=== PATIENT | male | born 1990 | race Caucasian/White ===

== ENCOUNTER → 2018-07-23 | Outpatient (REF) | payer OTHER | LOC: M SFHCLERA 12:56 | DX: J02.9 Acute pharyngitis, unspecified (principal) ==

== ENCOUNTER 2020-03-14 23:48 | Emergency (ER) | payer OTHER ==
[~2020-03-14] VITALS: Ht 170.2 cm; Wt 68.2 kg
[2020-03-14] MEDS ORDERED: diphenhydrAMINE 50MG/ML VIAL (J1200) IM STA (23:49)
[2020-03-14] MEDS ORDERED: HALOPERIDOL 5MG/ML VIAL (J1630 PER 1) IM STA (23:49)
[2020-03-15 00:14] LABS: HEMATOCRIT 44.6 % (42.0-52.0); HEMOGLOBIN 15.1 g/dl (13.5-17.5); MEAN CORPUSCULAR HEMOGLOBIN 31.1 pg (27.0-33.0); MEAN CORPUSCULAR HGB CONC 33.9 g/dl (32.0-36.5); MEAN CORPUSCULAR VOLUME 91.8 fl (80.0-96.0); PLATELET COUNT, AUTOMATED 280 10^3/uL (150-450); RED BLOOD COUNT 4.86 10^6/uL (4.30-6.10); WHITE BLOOD COUNT 12.1 10^3/uL (4.0-10.0)
[2020-03-15 00:51] LABS: AMPHETAMINES LEVEL URINE NEGATIVE (NEGATIVE); BARBITURATES URINE NEGATIVE (NEGATIVE); BENZODIAZEPINES URINE NEGATIVE (NEGATIVE); CANNABINOIDS URINE POSITIVE (NEGATIVE); COCAINE METABOLITE URINE POSITIVE (NEGATIVE); METHADONE URINE NEGATIVE (NEGATIVE); OPIATES URINE NEGATIVE (NEGATIVE); PHENCYCLIDINE URINE NEGATIVE (NEGATIVE)
[2020-03-15 00:57] LABS: ACETAMINOPHEN LEVEL < 2.0 UG/ML (10.0-30.0); ALBUMIN 4.5 GM/DL (3.2-5.2); ALT/SGPT 32 U/L (12-78); BILIRUBIN,DIRECT 0.1 MG/DL (0.0-0.2); BILIRUBIN,TOTAL 0.4 MG/DL (0.2-1.0); BLOOD UREA NITROGEN 13 MG/DL (7-18); CARBON DIOXIDE LEVEL 25 MEQ/L (21-32); CHLORIDE LEVEL 106 MEQ/L (98-107); CREATININE FOR GFR 1.16 MG/DL (0.70-1.30); ETHYL ALCOHOL (ETHANOL) 0.211 % (0.000-0.010); GLOMERULAR FILTRATION RATE > 60.0 (>60); GLUCOSE, FASTING 115 MG/DL (70-100); POTASSIUM SERUM 3.4 MEQ/L (3.5-5.1); SALICYLATE LEVEL 2.8 MG/DL (5.0-30.0); SODIUM LEVEL 141 MEQ/L (136-145)
[2020-03-15 04:55] VITALS: BP 124/73
== END 2020-03-15 04:57 | disposition home or self-care (01) ==
LOC: M ED 23:48
DX: F19.10 Other psychoactive substance abuse, uncomplicated (principal); F10.10 Alcohol abuse, uncomplicated; F12.10 Cannabis abuse, uncomplicated; F17.218 Nicotine dependence, cigarettes, with other nicotine-induced disorders; Z88.2 Allergy status to sulfonamides
CPT/HCPCS: 80048; 80076; 80307; 84443; 85027; 99284; G0480

== ENCOUNTER 2020-07-26 15:21 | Inpatient (IN) | payer OTHER ==
[~2020-07-26] VITALS: Ht 172.7 cm; Wt 70.4 kg
[2020-07-26] MEDS ORDERED: ADDE15CA3 PO (15:32)
[2020-07-26] MEDS ORDERED: ALLE24TA7 PO (15:32)
[2020-07-26] MEDS ORDERED: NS 1,000 ML IV ONE ×3 (15:45→18:00)
--- NOTE | 2020-07-26 16:21 | REPVR ---
PROCEDURE INFORMATION: Exam: XR Chest, 1 View Exam date and time: 07/26/2020 4:07 PM Age: 29 years old Clinical indication: Chest pain; Type not specified TECHNIQUE: Imaging protocol: XR of the chest Views: 1 view. COMPARISON: No relevant prior studies available. FINDINGS: Lungs: No focal areas of consolidation. Pleural space: No pleural effusion or pneumothorax. Heart/Mediastinum: Cardiac and mediastinal silhouettes are unremarkable. Bones/joints: No acute osseus lesion or fracture. IMPRESSION: No acute cardiopulmonary findings. Electronically signed by: Joseph Alonso On 07/26/2020 16:21:33 PM
[2020-07-26 16:22] LABS: BASO % 0.3 % (0.0-1.0); EOS # 0.1 10^3/uL (0.0-0.5); EOS % 0.8 % (0.0-3.0); HEMOGLOBIN 14.4 g/dl (13.5-17.5); LYMPH # 1.1 10^3/uL (1.5-5.0); LYMPH % 8.9 % (24.0-44.0); MEAN CORPUSCULAR HGB CONC 33.5 g/dl (32.0-36.5); MEAN CORPUSCULAR VOLUME 92.5 fl (80.0-96.0); MONO % 8.3 % (0.0-5.0); NEUTROPHILS # 9.6 10^3/uL (1.5-8.5); NEUTROPHILS % 81.1 % (36.0-66.0); PLATELET COUNT, AUTOMATED 270 10^3/uL (150-450); RED BLOOD COUNT 4.65 10^6/uL (4.30-6.10); WHITE BLOOD COUNT 11.9 10^3/uL (4.0-10.0)
[2020-07-26 17:49] LABS: ALBUMIN 4.1 GM/DL (3.2-5.2); ALT/SGPT 218 U/L (12-78); BILIRUBIN,DIRECT 0.2 MG/DL (0.0-0.2); BILIRUBIN,TOTAL 0.7 MG/DL (0.2-1.0); BLOOD UREA NITROGEN 8 MG/DL (7-18); CALCIUM LEVEL 9.1 MG/DL (8.5-10.1); CARBON DIOXIDE LEVEL 28 MEQ/L (21-32); CHLORIDE LEVEL 104 MEQ/L (98-107); CK-MB VALUE MASS 14.2 NG/ML (<3.6); CREATININE FOR GFR 0.99 MG/DL (0.70-1.30); GLOMERULAR FILTRATION RATE > 60.0 (>60); GLUCOSE, FASTING 92 MG/DL (70-100); LIPASE 269 U/L (73-393); POTASSIUM SERUM 3.6 MEQ/L (3.5-5.1); SODIUM LEVEL 139 MEQ/L (136-145); THYROID STIMULATING HORMONE 0.616 uIU/ML (0.358-3.740); TOTAL PROTEIN 7.1 GM/DL (6.4-8.2)
[2020-07-26 17:50] LABS: CPK CREATINE PHOSPHOKINASE 34500 U/L (39-308); MB/CK RELATIVE INDEX 0.04 (< OR =4)
[2020-07-26] MEDS ORDERED: NS 1,000 ML IV SCH (18:00)
[2020-07-26 18:14] LABS: ETHYL ALCOHOL (ETHANOL) < 0.003 % (0.000-0.010); SALICYLATE LEVEL 2.4 MG/DL (5.0-30.0)
[2020-07-26 18:48] LABS: AMPHETAMINES LEVEL URINE NEGATIVE (NEGATIVE); BARBITURATES URINE NEGATIVE (NEGATIVE); BENZODIAZEPINES URINE NEGATIVE (NEGATIVE); CANNABINOIDS URINE POSITIVE (NEGATIVE); COCAINE METABOLITE URINE POSITIVE (NEGATIVE); METHADONE URINE NEGATIVE (NEGATIVE); OPIATES URINE NEGATIVE (NEGATIVE); PHENCYCLIDINE URINE NEGATIVE (NEGATIVE)
[2020-07-26 18:51] LABS: HEPATITIS B SURFACE ANTIGEN NEGATIVE (NEGATIVE)
--- NOTE | 2020-07-26 19:10 | REPVR ---
PROCEDURE INFORMATION: Exam: US Abdomen, Limited; Right Upper Quadrant Exam date and time: 07/26/2020 6:40 PM Age: 29 years old Clinical indication: Abnormal findings; Abnormal lab test; Elevated liver enzymes TECHNIQUE: Imaging protocol: US abdomen. Real time ultrasound with image documentation. Limited exam focused on the right upper quadrant. COMPARISON: No relevant prior studies available. FINDINGS: Liver: Normal. No masses. Gallbladder: 3 mm echogenic polyp on the mucosal surface of the gallbladder may represent a cholesterol polyp. Gallbladder otherwise unremarkable. Common bile duct: The common bile duct measures 2.4 mm. No mass or choledocholithiasis. Pancreas: Visualized pancreas is unremarkable. Right kidney: Right kidney measures 9.4 x 4.7 x 4.7 cm. IMPRESSION: 1. 3 mm echogenic polyp on the mucosal surface of the gallbladder may represent a cholesterol polyp. Gallbladder otherwise unremarkable. 2. Otherwise unremarkable. Electronically signed by: Brandon Gage On 07/26/2020 19:09:26 PM
[2020-07-26 19:17] LABS: HEPATITIS C VIRUS ABY INDEX 0.1 INDEX (<0.8)
[2020-07-26 19:18] LABS: HEPATITIS B CORE ANTIBODY IGM NEGATIVE (NEGATIVE)
[2020-07-26 19:21] LABS: HEPATITIS A ANTIBODY IGM NEGATIVE (NEGATIVE)
--- NOTE | 2020-07-26 23:21 | HPEPDOC ---
[facility] Medical History & Physical Date of Admission Jul 26, 2020 Date of Service: Jul 26, 2020 Attending Physician: RAS SANTAMARIA DO History and Physical CHIEF COMPLAINT: chest tightness/palptiations HISTORY OF PRESENT ILLNESS: Rene Hatch is a 29 YO M with history of multi- substance and alcohol abuse who presented to the ER from urgent care with chest tightness and palpitations after taking a pre-workout supplement. Patient reports that [place] and did [place] with his friends, then today took a pre-workout supplement and did a rigorous weight lifting regimen. Shortly after taking the pre-workout supplement he started to feel severe chest tightness and palpitations. He also reports that he had some shortness of breath, nausea and lightheadedness at that time. Once he arrived to the ED, his chest discomfort had subsided. Upon further workup he was found to have transaminitis and elevated CK at 34,500 concerning for rhabdomyolysis. His toxicology screen is positive for cocaine and cannabinoids. Troponins were trended and were found to be negative. PAST MEDICAL HISTORY: Alcohol abuse Multi-substance abuse including cannabinoids and cocaine PAST SURGICAL HISTORY: Right wrist surgery SOCIAL HISTORY: Smokes 1 pack cigarettes per day Uses cocaine regularly Smokes marijuana regularly Denies any IV drug use or other illicit drug use FAMILY HISTORY: Noncontributory ALLERGIES: Please see below. REVIEW OF SYSTEMS: Constitutional: No Weight Change, No Fever, No Chills, No Night Sweats, No Fatigue, No Malaise ENT/Mouth: No Hearing Changes, No Ear Pain, No Nasal Congestion, No Sinus Pain, No Hoarseness, No sore throat, No Rhinorrhea, No Swallowing Difficulty Eyes: No Eye Pain, No Swelling, No Redness, No Foreign Body, No Discharge, No Vision Changes Cardiovascular: Reports recent history of chest tightness, palpitations, No Dyspnea on Exertion, No Orthopnea, No Claudication, No Edema, No Palpitations Respiratory: No Cough, No Wheezing, No Smoke Exposure, No Dyspnea Gastrointestinal: No Nausea, No Vomiting, No Diarrhea, No Constipation, No Pain, No Heartburn, No Anorexia, No Dysphagia, No Hematochezia, No Melena, No Flatulence, No Jaundice Genitourinary: No hematuria or blood tinged urine Musculoskeletal: No Arthralgias, No Myalgias, No Joint Swelling, No Joint Stiffness, No Back Pain, No Neck Pain, No Injury History Skin: No Skin Lesions, No Pruritis, No Hair Changes, No Breast/Skin Changes, No Nipple Discharge Neuro: No Weakness, No Numbness, No Paresthesias, No Loss of Consciousness, No Syncope, No Dizziness, No Headache, No Coordination Changes, No Recent Falls Psych: No Anxiety/Panic, No Depression, No Insomnia, No Personality Changes, No Delusions Heme/Lymph: No Bruising, No Bleeding, No Transfusions History, No Ly mphadenopathy Endocrine: No Polyuria, No Polydipsia, No Temperature Intolerance HOME MEDICATIONS: Please see below. VITAL SIGNS: see below GENERAL: alert and oriented, in no apparent distress, pleasant and conversant in full sentences. HEENT: PERRL, EOMI, Oral mucous membranes are moist without lesions. NECK: The patient has no noted JVD. No adenopathy is appreciated. No thyromegaly CHEST/LUNGS: Lungs are clear bilaterally without rhonchi, rales, or wheezes. There is no subcutaneous air appreciated. There is no tenderness to the chest wall. HEART:Regular rate and rhythm. No murmurs, rubs, or gallops are appreciated. Distal pulses are 2+. No carotid bruits appreciated. ABDOMEN: Soft, nontender, and nondistended. Bowel sounds are positive. No organomegaly is appreciated. No masses are appreciated. There are no peritoneal signs. There is no [place] sign. EXTREMITIES: No peripheral edema. There is no focal long bone tenderness or deformity. SKIN: The patients skin is warm and dry, without rashes or lesions. PSYCHIATRIC: AAO x 3, normal mood/affect NEUROLOGIC: The patient has 5/5 strength to the upper and lower extremities bilaterally. Sensation is intact throughout. Deep tendon reflexes are 2+ in all four extremities. There are no deficits to the cranial nerves. LABORATORY DATA: See below. IMAGING: LIVER US: FINDINGS: Liver: Normal. No masses. Gallbladder: 3 mm echogenic polyp on the mucosal surface of the gallbladder may represent a cholesterol polyp. Gallbladder otherwise unremarkable. Common bile duct: The common bile duct measures 2.4 mm. No mass or choledocholithiasis. Pancreas: Visualized pancreas is unremarkable. Right kidney: Right kidney measures 9.4 x 4.7 x 4.7 cm. IMPRESSION: 1. 3 mm echogenic polyp on the mucosal surface of the gallbladder may represent a cholesterol polyp. Gallbladder otherwise unremarkable. 2. Otherwise unremarkable. CXR: FINDINGS: Lungs: No focal areas of consolidation. Pleural space: No pleural effusion or pneumothorax. Heart/Mediastinum: Cardiac and mediastinal silhouettes are unremarkable. Bones/joints: No acute osseus lesion or fracture. IMPRESSION: No acute cardiopulmonary findings. MICROBIOLOGY: Please see below. ASSESSMENT: This is a 29-year-old male with history of alcohol abuse and multi-s ubstance abuse who presented with chest pain and palpitations in the setting of recent drug use found to have elevated CPK concerning for rhabdomyolysis. PLAN: 1. Rhabdomyolysis: Total CK was found to be 34,500 -Aggressive IV fluid resuscitation, titrate to UOP 200-300mL/hr -Kidney function within normal limits and patient denies any recent hematuriaa -Will check CK level Q6H and will back off on fluids once level <5000 -No other electrolyte abnormalities noted 2. Transaminitis: -AST/ALT elevated at 944/218, respectively -Most likely 2/2 to EtOH binge last night, will trend CMP -GGT pending -Hepatitis workup negative thus far 3. Chest pain: likely 2/2 cocaine use + preworkout supplement -Troponin trend negative, no EKG abnormalities -Resolved 4. EtOH abuse: -[facility] protocol ordered -Serax 15mg TID ordered for withdrawal 5. Nicotene abuse: -Smoking cessation counseling -Nicoderm patch PRN DVT ppx: COLEMAN/SCDs Vital Signs Vital Signs Date Time Temp Pulse Resp B/P (MAP) Pulse Ox O2 Delivery O2 Flow Rate FiO2 07/26/20 22:30 97.8 78 17 142/74 (96) 99 Room Air Laboratory Data Labs 24H Laboratory Tests 2 07/26/20 15:56: Immature Granulocyte % (Auto) 0.6, Neutrophils (%) (Auto) 81.1H, Lymphocytes (%) (Auto) 8.9L, Monocytes (%) (Auto) 8.3H, Eosinophils (%) (Auto) 0.8, Basophils (%) (Auto) 0.3, Neutrophils # (Auto) 9.6H, Lymphocytes # (Auto) 1.1L, Monocytes # (Auto) 1.0H, Eosinophils # (Auto) 0.1, Basophils # (Auto) 0.0, Nucleated Red Blood Cells % (auto) 0.0, Anion Gap 7L, Glomerular Filtration Rate > 60.0, Calcium Level 9.1, Total Bilirubin 0.7, Direct Bilirubin 0.2, Aspartate Amino Transf (AST/SGOT) 944H, Alanine Aminotransferase (ALT/SGPT) 218H, Alkaline Phosphatase 59, Total Creatine Kinase 45335W, Creatine Kinase MB 14.2H, Creatine Kinase MB Relative Index 0.04, Total Protein 7.1, Albumin 4.1, Albumin/Globulin Ratio 1.4, Lipase 269, Thyroid Stimulating Hormone (TSH) 0.616, Salicylates Level 2.4L, Acetaminophen Level 2.0L, Ethyl Alcohol Level < 0.003, Hepatitis A IgM Antibody NEGATIVE, Hepatitis B Surface Antigen NEGATIVE, Hepatitis B Core IgM Antibody NEGATIVE, Hepatitis C Antibody Index 0.1 07/26/20 16:00: POC Troponin I (Misc) 0.01 07/26/20 18:04: Urine Opiates Screen NEGATIVE, Urine Methadone Screen NEGATIVE, Urine Barbiturates Screen NEGATIVE, Urine Phencyclidine Screen NEGATIVE, Urine Amphetamines Screen NEGATIVE, Urine Benzodiazepines Screen NEGATIVE, Urine Cocaine Metabolite Screen POSITIVEH, Urine Cannabinoids Screen POSITIVEH 07/26/20 19:36: POC Troponin I (Misc) 0.00 CBC/BMP Laboratory Tests 07/26/20 15:56 Home Medications Scheduled PRN Dextroamphetamine/Amphetamine (Adderall Xr 15 mg Capsule) 15 Mg Cap.er.24h, 15 MG PO DAILY PRN for FOCUS Fexofenadine/Pseudoephedrine (Kimberly-D 24 Hour Tablet) 1 Each Tab.er.24h, 1 TAB PO DAILY PRN for ALLERGIES/ CONGESTION Allergies Coded Allergies: Sulfa (Sulfonamide Antibiotics) (Verified Allergy, Intermediate, HIVES, 03/14/20) GME ATTESTATION GME ATTESTATION My faculty preceptor for this patient encounter was physically present during the encounter and was fully available. All aspects of the patient interview, examination, medical decision making process, and medical care plan development were reviewed and approved by the faculty preceptor. The faculty preceptor is aware and concurs with the plan as stated in the body of this note and will attest to such by his/her cosignature. ABBIE GENAO MD Jul 26, 2020 23:21
[2020-07-26 23:39] VITALS: BP 153/88
[2020-07-26] MEDS: NICOTINE 21MG/24HR 1 EA TRANSDERMAL TD SCH (23:58)
[2020-07-26] MEDS: OXAZEPAM 15 MG CAP PO SCH (23:59)
[2020-07-26] MEDS: NS 1,000 ML IV SCH (23:59)
[2020-07-27] VITALS: BP 153/88
[2020-07-27] MEDS ORDERED: RAMELTEON 8 MG TAB (ROZEREM) PO PRN (01:00)
[2020-07-27 02:39] LABS: CPK CREATINE PHOSPHOKINASE 29307 U/L (39-308)
[2020-07-27] MEDS ORDERED: PANTOPRAZOLE 40MG VIAL (C9113 PER 1) IV ONE (05:00)
[2020-07-27] MEDS: OXAZEPAM 15 MG CAP PO SCH ×3 (05:04→22:44)
[2020-07-27] MEDS: NS 1,000 ML IV SCH ×3 (05:04→14:18)
[2020-07-27 05:53] VITALS: BP 121/79
[2020-07-27 06:00] VITALS: BP 121/79
[2020-07-27 06:43] LABS: HEMATOCRIT 38.6 % (42.0-52.0); HEMOGLOBIN 12.6 g/dl (13.5-17.5); MEAN CORPUSCULAR HEMOGLOBIN 30.7 pg (27.0-33.0); MEAN CORPUSCULAR HGB CONC 32.6 g/dl (32.0-36.5); MEAN CORPUSCULAR VOLUME 94.1 fl (80.0-96.0); PLATELET COUNT, AUTOMATED 222 10^3/uL (150-450); WHITE BLOOD COUNT 7.7 10^3/uL (4.0-10.0)
[2020-07-27 07:26] LABS: ALBUMIN 3.1 GM/DL (3.2-5.2); ALT/SGPT 159 U/L (12-78); BILIRUBIN,TOTAL 0.7 MG/DL (0.2-1.0); BLOOD UREA NITROGEN 6 MG/DL (7-18); CALCIUM LEVEL 8.3 MG/DL (8.5-10.1); CARBON DIOXIDE LEVEL 27 MEQ/L (21-32); CHLORIDE LEVEL 111 MEQ/L (98-107); CREATININE FOR GFR 0.91 MG/DL (0.70-1.30); GLOMERULAR FILTRATION RATE > 60.0 (>60); GLUCOSE, FASTING 84 MG/DL (70-100); MAGNESIUM LEVEL 2.1 MG/DL (1.8-2.4); POTASSIUM SERUM 4.1 MEQ/L (3.5-5.1); SODIUM LEVEL 143 MEQ/L (136-145); TOTAL PROTEIN 5.6 GM/DL (6.4-8.2)
[2020-07-27 08:23] LABS: TROPONIN I < 0.02 NG/ML (< 0.10)
--- NOTE | 2020-07-27 09:34 | ECGEPIP ---
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
--- NOTE | 2020-07-27 09:38 | ECGEPIP ---
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
[2020-07-27] MEDS: MULTIVITAMINS/MINERALS THERAP 1 TAB PO SCH (10:05)
[2020-07-27] MEDS: THIAMINE 100 MG TAB PO SCH (10:05)
[2020-07-27] MEDS: FOLIC ACID 1 MG TAB PO SCH (10:05)
[2020-07-27] MEDS ORDERED: GI COCKTAIL 50ML BTL(HYOSCYAMINE/MAALOX/LIDOCAINE VISCOUS)(1:3:1) PO ONE (12:00)
--- NOTE | 2020-07-27 13:30 | IPNPDOC ---
Text Note Date of Service The patient was seen on 07/27/20. NOTE Subjective: Pt feels well. Denies CP/SOB/palpitations. No N/V/Abd pain. Vitals: (see below) General: No acute distress, laying comfortably in bed. HEENT: Moist mucous membranes. Neck: No JVD or lymphadenopathy Cardiac: RRR, No murmurs Pulm: Clear to auscultation b/l. No wheezing, rhonchi Abd: NT/ND + BS Ext: No edema or cyanosis LABORATORY DATA: See below. IMAGING: LIVER US: FINDINGS: Liver: Normal. No masses. Gallbladder: 3 mm echogenic polyp on the mucosal surface of the gallbladder may represent a cholesterol polyp. Gallbladder otherwise unremarkable. Common bile duct: The common bile duct measures 2.4 mm. No mass or choledocholithiasis. Pancreas: Visualized pancreas is unremarkable. Right kidney: Right kidney measures 9.4 x 4.7 x 4.7 cm. IMPRESSION: 1. 3 mm echogenic polyp on the mucosal surface of the gallbladder may represent a cholesterol polyp. Gallbladder otherwise unremarkable. 2. Otherwise unremarkable. CXR: FINDINGS: Lungs: No focal areas of consolidation. Pleural space: No pleural effusion or pneumothorax. Heart/Mediastinum: Cardiac and mediastinal silhouettes are unremarkable. Bones/joints: No acute osseus lesion or fracture. IMPRESSION: No acute cardiopulmonary findings. MICROBIOLOGY: Please see below. ASSESSMENT: This is a 29-year-old male with history of alcohol abuse and multi- substance abuse who presented with chest pain and palpitations in the setting of recent drug use found to have elevated CPK concerning for rhabdomyolysis. PLAN: 1. Rhabdomyolysis: Total CK was found to be 34,500 - Imporving. Cont IVF NS at 200cc/hr. -Aggressive IV fluid resuscitation, titrate to UOP 200-300mL/hr -Kidney function within normal limits and patient denies any recent hematuriaa -Will check CK level Q6H and will back off on fluids once level <5000 -No other electrolyte abnormalities noted 2. Transaminitis: -AST/ALT elevated at 944/218, respectively -Most likely 2/2 to EtOH binge last night, will trend CMP -GGT pending -Hepatitis workup negative thus far - F/u with GI outpt. - No abd pain 3. Chest pain: likely 2/2 cocaine use + preworkout supplement -Troponin trend negative, no EKG abnormalities -Resolved - cessation counseling 4. EtOH abuse: -[facility] protocol ordered -Serax 15mg TID ordered for withdrawal - cessation counseling 5. Nicotine abuse: -Smoking cessation counseling -Nicoderm patch PRN DVT ppx: COLEMAN/SCDs VS,Fishbone, I+O VS, Fishbone, I+O Laboratory Tests 07/26/20 15:56 07/27/20 06:05 Vital Signs Date Time Temp Pulse Resp B/P (MAP) Pulse Ox O2 Delivery O2 Flow Rate FiO2 07/27/20 06:00 98.1 60 19 121/79 (93) 100 Room Air I&O- Last 24 Hours up to 6 AM 07/27/20 06:00 Intake Total 2900 ml Output Total 700 ml Balance 2200 ml ELA NAGY MD Jul 27, 2020 13:30
[2020-07-27 14:02] VITALS: BP_SYST 125; BP_SYST 133; BP_DIAS 73; BP_DIAS 80
[2020-07-27] MEDS: NICOTINE 21MG/24HR 1 EA TRANSDERMAL TD SCH (21:00)
[2020-07-27 22:00] VITALS: BP 136/65
[2020-07-27 22:15] VITALS: BP 136/65
[2020-07-28] MEDS: OXAZEPAM 15 MG CAP PO SCH ×2 (05:45→13:59)
[2020-07-28 05:56] VITALS: BP 130/69
[2020-07-28 06:00] VITALS: BP 130/69
[2020-07-28 06:36] LABS: HEMOGLOBIN 13.5 g/dl (13.5-17.5); MEAN CORPUSCULAR HEMOGLOBIN 30.8 pg (27.0-33.0); MEAN CORPUSCULAR HGB CONC 32.9 g/dl (32.0-36.5); MEAN CORPUSCULAR VOLUME 93.6 fl (80.0-96.0); PLATELET COUNT, AUTOMATED 208 10^3/uL (150-450); RED BLOOD COUNT 4.38 10^6/uL (4.30-6.10); WHITE BLOOD COUNT 7.8 10^3/uL (4.0-10.0)
[2020-07-28 07:15] LABS: ALBUMIN 3.1 GM/DL (3.2-5.2); ALT/SGPT 140 U/L (12-78); BILIRUBIN,TOTAL 0.5 MG/DL (0.2-1.0); BLOOD UREA NITROGEN 7 MG/DL (7-18); CARBON DIOXIDE LEVEL 28 MEQ/L (21-32); CHLORIDE LEVEL 109 MEQ/L (98-107); CPK CREATINE PHOSPHOKINASE 6402 U/L (39-308); CREATININE FOR GFR 0.89 MG/DL (0.70-1.30); GLOMERULAR FILTRATION RATE > 60.0 (>60); GLUCOSE, FASTING 88 MG/DL (70-100); POTASSIUM SERUM 3.6 MEQ/L (3.5-5.1); SODIUM LEVEL 142 MEQ/L (136-145); TROPONIN I < 0.02 NG/ML (< 0.10)
[2020-07-28] MEDS: MULTIVITAMINS/MINERALS THERAP 1 TAB PO SCH (09:04)
[2020-07-28] MEDS: THIAMINE 100 MG TAB PO SCH (09:04)
[2020-07-28] MEDS: FOLIC ACID 1 MG TAB PO SCH (09:04)
[2020-07-28 13:44] VITALS: BP 129/79
[2020-07-28 14:06] LABS: ALBUMIN 3.4 GM/DL (3.2-5.2); ALT/SGPT 146 U/L (12-78); BILIRUBIN,TOTAL 0.6 MG/DL (0.2-1.0); BLOOD UREA NITROGEN 8 MG/DL (7-18); CALCIUM LEVEL 8.8 MG/DL (8.5-10.1); CARBON DIOXIDE LEVEL 29 MEQ/L (21-32); CHLORIDE LEVEL 107 MEQ/L (98-107); CPK CREATINE PHOSPHOKINASE 5644 U/L (39-308); CREATININE FOR GFR 0.91 MG/DL (0.70-1.30); GLOMERULAR FILTRATION RATE > 60.0 (>60); GLUCOSE, FASTING 87 MG/DL (70-100); SODIUM LEVEL 139 MEQ/L (136-145); TOTAL PROTEIN 6.5 GM/DL (6.4-8.2)
[2020-07-28] MEDS ORDERED: THIA100TA PO (14:41)
[2020-07-28] MEDS ORDERED: VITMTA PO (14:41)
[2020-07-28] MEDS ORDERED: NICO21PAT TD (14:41)
[2020-07-28] MEDS ORDERED: FOLI1TAB11 PO (14:41)
--- NOTE | 2020-07-28 15:09 | DS.PDOC ---
Discharge Summary General Date of Admission Jul 27, 2020 at 10:14 Date of Discharge 07/28/20 Attending Physician: ELA NAGY MD Discharge Summary PROCEDURES PERFORMED DURING STAY: None. ADMITTING/DISCHARGE DIAGNOSES: 1. Rhabdomyolysis 2. Transaminitis 3. Cocaine abuse 4. alcohol/tobacco abuse COMPLICATIONS/CHIEF COMPLAINT: HISTORY OF PRESENT ILLNESS/HOSPITAL COURSE: Rene Hatch is a 29 YO M with history of multi-substance and alcohol abuse who presented to the ER from urgent care with chest tightness and palpitations after taking a pre-workout supplement. Patient reports that yesterday he went to the [employer] [facility] [employer] and did cocaine with his friends, then today took a pre-workout supplement and did a rigorous weight lifting regimen. Shortly after taking the pre-workout supplement he started to feel severe chest tightness and palpitations. He also reports that he had some shortness of breath, nausea and lightheadedness at that time. Once he arrived to the ED, his chest discomfort had subsided. Upon further workup he was found to have transaminitis and elevated CK at 34,500 concerning for rhabdomyolysis. His toxicology screen is positive for cocaine and cannabinoids. Troponins were trended and were found to be negative. Over course of hospitalization pt received IVF hydration with improvement of CK and LFTs. Pt remained hemodynamically stable. No CP/SOB/palpitations. Pt was counseled on cessation of polysubstance abuse. Pt will be d/c today and advised to continued adequate hydration. Transaminitis: -AST/ALT elevated at 944/218, respectively -Most likely 2/2 to EtOH binge last night, will trend CMP -GGT pending -Hepatitis workup negative thus far - F/u with GI outpt. - No abd pain Chest pain: likely 2/2 cocaine use + preworkout supplement -Troponin trend negative, no EKG abnormalities -Resolved - cessation counseling EtOH abuse: -[facility] protocol ordered -Serax 15mg TID ordered for withdrawal - cessation counseling . Nicotine abuse: -Smoking cessation counseling -Nicoderm patch PRN DISCHARGE MEDICATIONS: Please see below. ALLERGIES: Please see below. PHYSICAL EXAMINATION ON DISCHARGE: Vitals: (see below) General: No acute distress, laying comfortably in bed. HEENT: Moist mucous membranes. Neck: No JVD or lymphadenopathy Cardiac: RRR, No murmurs Pulm: Clear to auscultation b/l. No wheezing, rhonchi Abd: NT/ND + BS Ext: No edema or cyanosis LABORATORY DATA: Please see below. PROGNOSIS: Good ACTIVITY: As tolerated. DIET: Regular diet DISCHARGE PLAN/DISPOSITION: Home DISCHARGE INSTRUCTIONS: 1.F/u with PCP in 1 week. F/u with PCP for GI referral and close monitoring of liver function tests. Return to ED If symptoms worsen. Avoid alcohol, tobacco, illicit drugs. Stay well hydrated. DISCHARGE CONDITION: Stable. TIME SPENT ON DISCHARGE: 34 minutes. Vital Signs/I&Os Vital Signs Date Time Temp Pulse Resp B/P (MAP) Pulse Ox O2 Delivery O2 Flow Rate FiO2 07/28/20 13:44 63 129/79 07/28/20 13:44 97.3 16 98 Room Air I&O- Last 24 Hours up to 6 AM 07/28/20 05:59 Intake Total 5760 ml Output Total 4100 ml Balance 1660 ml Laboratory Data Labs 24H Laboratory Tests 2 07/27/20 17:57: Total Creatine Kinase 9870H 07/28/20 06:20: Total Creatine Kinase 6402H, Nucleated Red Blood Cells % (auto) 0.0, Anion Gap 5L, Glomerular Filtration Rate > 60.0, Calcium Level 8.0L, Total Bilirubin 0.5, Aspartate Amino Transf (AST/SGOT) 307H, Alanine Aminotransferase (ALT/SGPT) 140H, Alkaline Phosphatase 49, Troponin I < 0.02, Total Protein 6.0L, Albumin 3.1L, Albumin/Globulin Ratio 1.1 07/28/20 12:59: Total Creatine Kinase 5644H, Anion Gap 3L, Glomerular Filtration Rate > 60.0, Calcium Level 8.8, Total Bilirubin 0.6, Aspartate Amino Transf (AST/SGOT) 296H, Alanine Aminotransferase (ALT/SGPT) 146H, Alkaline Phosphatase 55, Total Protein 6.5, Albumin 3.4, Albumin/Globulin Ratio 1.1 CBC/BMP Laboratory Tests 07/28/20 06:20 07/28/20 12:59 Discharge Medications Scheduled Folic Acid (Folic Acid) 1 Mg Tablet, 1 MG PO DAILY Multivitamins (Thera M Plus Tablet) 1 Each Tablet, 1 TAB PO DAILY Nicotine (Nicotine Patch) 21 Mg Patch.td24, 1 PATCH TD QHS Thiamine Hcl (Vitamin B-1) 100 Mg Tablet, 100 MG PO DAILY Scheduled PRN Fexofenadine/Pseudoephedrine (Kimberly-D 24 Hour Tablet) 1 Each Tab.er.24h, 1 TAB PO DAILY PRN for ALLERGIES/ CONGESTION, (Reported) Allergies Coded Allergies: Sulfa (Sulfonamide Antibiotics) (Verified Allergy, Intermediate, HIVES, 03/14/20) ELA NAGY MD Jul 28, 2020 15:09
== END 2020-07-28 15:11 | disposition home or self-care (01) | DRG 351 ==
LOC: EDBD 15:21 → M ED 15:21 → M ED INP 22:21 → ENRESERV 22:44 → M MSPAV 23:39 → OBSVTOIN 07-27 10:14
PROVIDERS: ADMIT Internal Medicine; ATTEND Internal Medicine
DX: M62.82 Rhabdomyolysis (principal); F14.10 Cocaine abuse, uncomplicated; F12.10 Cannabis abuse, uncomplicated; F17.210 Nicotine dependence, cigarettes, uncomplicated; F10.10 Alcohol abuse, uncomplicated; R74.0 Nonspecific elevation of levels of transaminase and lactic acid dehydrogenase [LDH]; R07.89 Other chest pain; Z79.899 Other long term (current) drug therapy; Z88.2 Allergy status to sulfonamides

== ENCOUNTER 2020-08-12 20:29 | Emergency (ER) | payer OTHER ==
[~2020-08-12] VITALS: Ht 172.7 cm; Wt 69.5 kg
[~2020-08-12 20:29] MED LIST: ADDE15CA3 PO; ALLE24TA7 PO; FOLI1TAB11 PO; NICO21PAT TD; THIA100TA PO; VITMTA PO
[2020-08-12 21:10] LABS: HEMATOCRIT 43.7 % (42.0-52.0); HEMOGLOBIN 14.3 g/dl (13.5-17.5); MEAN CORPUSCULAR HEMOGLOBIN 30.6 pg (27.0-33.0); MEAN CORPUSCULAR HGB CONC 32.7 g/dl (32.0-36.5); MEAN CORPUSCULAR VOLUME 93.4 fl (80.0-96.0); PLATELET COUNT, AUTOMATED 306 10^3/uL (150-450); RED BLOOD COUNT 4.68 10^6/uL (4.30-6.10); WHITE BLOOD COUNT 9.6 10^3/uL (4.0-10.0)
[2020-08-12 21:41] LABS: AMPHETAMINES LEVEL URINE NEGATIVE (NEGATIVE); BARBITURATES URINE NEGATIVE (NEGATIVE); BENZODIAZEPINES URINE NEGATIVE (NEGATIVE); CANNABINOIDS URINE POSITIVE (NEGATIVE); COCAINE METABOLITE URINE NEGATIVE (NEGATIVE); METHADONE URINE NEGATIVE (NEGATIVE); OPIATES URINE NEGATIVE (NEGATIVE); PHENCYCLIDINE URINE NEGATIVE (NEGATIVE)
[2020-08-12 21:50] LABS: ACETAMINOPHEN LEVEL < 2.0 UG/ML (10.0-30.0); ALT/SGPT 30 U/L (12-78); BILIRUBIN,DIRECT 0.1 MG/DL (0.0-0.2); BILIRUBIN,TOTAL 0.6 MG/DL (0.2-1.0); BLOOD UREA NITROGEN 8 MG/DL (7-18); CALCIUM LEVEL 8.1 MG/DL (8.5-10.1); CARBON DIOXIDE LEVEL 28 MEQ/L (21-32); CHLORIDE LEVEL 106 MEQ/L (98-107); ETHYL ALCOHOL (ETHANOL) 0.193 % (0.000-0.010); GLOMERULAR FILTRATION RATE > 60.0 (>60); GLUCOSE, FASTING 98 MG/DL (70-100); POTASSIUM SERUM 3.8 MEQ/L (3.5-5.1); SALICYLATE LEVEL 2.6 MG/DL (5.0-30.0); SODIUM LEVEL 142 MEQ/L (136-145); TOTAL PROTEIN 7.1 GM/DL (6.4-8.2)
[2020-08-13 03:23] VITALS: BP 131/80
== END 2020-08-13 03:24 | disposition home or self-care (01) ==
LOC: M ED 20:29
DX: F10.120 Alcohol abuse with intoxication, uncomplicated (principal); F17.200 Nicotine dependence, unspecified, uncomplicated; Z88.1 Allergy status to other antibiotic agents; Z88.2 Allergy status to sulfonamides
CPT/HCPCS: 36415; 80048; 80076; 80307; 84443; 85027; 99284; G0480